=== PATIENT | female | born 1985 | race Caucasian/White ===

== ENCOUNTER → 2019-08-25 13:14 | Outpatient (CLI) | payer OTHER, SELFPAY ==
--- NOTE | 2019-08-25 | DI.MRI.S_ITS ---
PROCEDURE: MR FOOT RT WO/W CON INDICATIONS: Localized swelling, mass and lump, right lower decker TECHNIQUE: Noncontrast coronal T1 spin echo and STIR, sagittal T1 spin echo with fat saturation and STIR, axial T1 spin echo and T2 fast spin echo with fat saturation. After the administration of contrast, axial/sagittal/coronal T1 spin echo with fat saturation through the right foot. COMPARISON: [facility] Outside Film, MR, MR FOOT RIGHT WITHOUT CONTRAST, 06/15/2019, 10:48. FINDINGS: Image quality: Excellent. Bones: The visualized bone marrow demonstrates normal signal on all sequences. The overlying cortex appears intact. No abnormal intraosseous enhancement. Soft tissues: Again noted is subcutaneous soft tissue edema and swelling over dorsum of metatarsal bones particularly on lateral aspect, decreased compared to previous study. After IV contrast infusion, there is mild heterogeneous enhancement in the area of swelling. No definite discrete soft tissue mass or drainable fluid collection is seen. Small amount of fluid within first MTP joint is seen. The scanned muscles demonstrate normal overall bulk and internal signal. Subcutaneous tissues appear normal as well. IMPRESSION: 1. Nonspecific soft tissue swelling and edema involving the dorsal mouth midfoot particularly over third through fifth metatarsal bones. Mild heterogeneous contrast enhancement is noted within subcutaneous soft tissue. No discrete enhancing mass or drainable fluid collection is identified. No underlying muscle or tendon involvement is seen. Extent of swelling has decreased since previous study. 2. There is no marrow edema. No fracture or dislocation. No bony erosive changes or abnormal intraosseous enhancement. Dictated by: Anthony Hager M.D. on 08/25/2019 at 16:09 Approved by: Anthony Hager M.D. on 08/25/2019 at 16:26
== END ==
PROVIDERS: Referring Provider Orthopaedic Surgery Foot and Ankle Surgery; Visit Provider Orthopaedic Surgery Foot and Ankle Surgery
DX: R22.41 Localized swelling, mass and lump, right lower limb (principal)
CPT/HCPCS: 73720

== ENCOUNTER → 2019-11-21 11:22 | Outpatient (CLI) | payer OTHER, SELFPAY ==
[2019-11-22 08:40] LABS: COVID19 Sendout NOT DETECTED (Not Detect)
== END ==
PROVIDERS: Visit Provider Physician Assistant
DX: Z11.59 Encounter for screening for other viral diseases (principal)
CPT/HCPCS: 87635

== ENCOUNTER 2019-11-24 11:02 | Day surgery (SDC) | payer OTHER, SELFPAY ==
[2019-11-23 07:58] VITALS: BMI 41.1
[2019-11-24] VITALS (8 sets, daily range): BP systolic 102–120; BP diastolic 66–85; PULSE 65–77; RESP 12–20; TEMP 36.1–36.9; O2SAT 94–98; BMI 41.1
--- NOTE | 2019-11-24 | PATH_ITS ---
[facility] Accession Number: [id number] . 01 Material submitted: . PART A: foot - RIGHT DORSAL FOOT - PROXIMAL LESION PART B: foot - RIGHT DORSAL FOOT 4TH/5TH INNERSPACE . 01 Diagnosis: A. Right Dorsal Foot, Biopsy: Deep dermal/subcutaneous granulomatous inflammation with areas of palisading. . Note: Diagnostic considerations could include deep granuloma annulare (favor given the presence of mucin, highlighted with colloidal iron stain, in the center of the palisading granulomatous inflammation), a rheumatoid nodule, changes secondary to local trauma, and an infectious process, among others. Special stains for microorganisms (PAS, Gram, AFB) are negative. No malignancy is identified on H/E sections, nor with pancytokeratin immunostain performed. Clinicopathological correlation is advised. . B. Right Dorsal Foot Fourth/Fifth Inner Space, Biopsy: Fibroadipose tissue with focus of granulomatous inflammation (please see comment on part A). [facility] 11/29/2019 1559 Local . 01 Electronically signed: Malu Sherman MD, Dermatopathologist NPI- [id number] . 01 Gross description: . (A) Received in formalin, labeled right distal foot proximal lesion, is a piece of wallace-white firm tissue (1.5 x 0.8 x 0.7 cm) partially covered in wallace-white unremarkable friction-ridged skin (1.4 x 0.3 cm). The resection margin is inked blue. Serially sectioned and entirely submitted in cassettes A1-A2, two slices in each cassette. (B) Received in formalin, labeled right dorsal foot fourth-fifth interspace, is a 1.8 x 1.5 x 0.6 cm piece of wallace-white rubbery tissue. The specimen is inked blue, serially sectioned, and entirely submitted in cassettes B1-B2. ([id number]) /MRV 11/25/2019 1056 Local . 01 Pathologist provided ICD-10: L92.9 . 01 CPT . 752624, 767741, [id number], 764151, 130394, [id number], [id number] Performed at: 01 [facility] [address] [facility], [place], [place] [id number] MD Johnnie Maza MD Phone: [phone]
[2019-11-24] MEDS: LACTATED RINGERS 1,000 ML 42 ML IV (11:17)
--- NOTE | 2019-11-24 11:23 | SUR.PREOP ---
Patient states that she had a reaction to penicillin when she was 16 with her throat swelling. Patient has since taken amoxicillin without difficulty. Notified pharmacy to proceed with [facility]. Dr Saul ramirez.
--- NOTE | 2019-11-24 11:44 | PM.PREOP ---
Pre-operative Note COVID-19 COVID-19 status: Negative Interval Note History & Physical reviewed/Exam performed by Physician: Yes Changes to H&P: No
[2019-11-24] MEDS: CEFAZOLIN 2 GM/100 ML FROZ.PIGGY IV (12:30)
--- NOTE | 2019-11-24 12:48 | SUR.OPER ---
Supine on padded OR bed, head on pillow, arms secured on padded arm boards at <90 degrees abduction, legs uncrossed, safety belt at thigh, tape over blanket to left leg. Right leg in surgeon control.
[2019-11-24] MEDS: BUPIVACAINE 0.25% W/ EPI 30 ML VIAL INJ (13:24)
--- NOTE | 2019-11-24 13:26 | PM.OP.1 ---
Operative Date/Time/Diagnoses Date of procedure: 11/24/19 Time of procedure: 12:40 Pre-op diagnosis: Mass right foot r22.41 Post-op diagnosis: same Procedure & Clinicians Procedure: Open incisional biopsy skin and deep tissue right foot x2 Same procedure as scheduled: Yes Indications: Patient is a 34-year-old female history of painful masses on the dorsum of her right foot greater than 6 months. She has palpable tender masses over the dorsum of the foot in several areas including over the dorsal lateral midfoot and dorsum over the 1st metatarsophalangeal joint and 4th 5th metatarsal interspace. Nonspecific changes were demonstrated on MRI with and without contrast. Edema within the subcutaneous tissues. Patient has been indicated for open incisional biopsy. She has multiple areas of tenderness and nodularity. We discussed biopsying the 2 most prominent painful areas which are the dorsal lateral midfoot lesion and the fourth-fifth metatarsal interspace. The risks and benefits of the procedure have been discussed with the patient even opportunity to ask questions. The risks of surgery include but are not limited to infection, persistence of pain, damage to nerves and blood vessels, need for additional procedures, DVT, PE, cardiopulmonary complications and . The patient expressed a thorough understanding of the risks and benefits of surgery and has elected to proceed. Consent was signed in the office. Surgeon: America Hughes Click Yes if Unassisted: Yes Anesthesia Type: General and Local Operative Notes Findings: Two ill-defined masses were incised and sent for allergy and culture. Proximal a biopsy was sent with a small ellipse of overlying and normal skin. Massive both appeared to consist of thickened subcutaneous tissues and fat and were formed in close proximity to venous structures. Both ended superficial to the extensor tendons with no defined lesion or capsule. Again thickened tissue was excised and sent for pathology and culture. There is no evidence of purulence. Closure Type: primary Specimen(s): other (Specimen for pathology and culture) Estimated Blood Loss (mL): 1 Blood products transfused: none Tourniquet time (min): 18 Procedure in detail: Patient was seen in the preoperative area and the surgical site was marked and informed consent confirmed. The patient was then brought back to the operating room by the anesthesia team positioned supine on the operative table. Anesthetic was administered by the anesthesia team once the appropriate level of anesthesia was obtained patient was position. A small bump was placed under the right thigh. The right lower extremity was prepped and draped in the standard sterile fashion. A nonsterile and goal tourniquet was placed. An SCD was on the contralateral lower extremity. A formal time-out was completed confirming the patient's side and site of surgery administration of appropriate preoperative antibiotics. All were in agreement. Esmarch was used for exsanguination and tourniquet was raised to 250 mm of mercury and stayed there for 18 minutes. Two separate longitudinal and extensile style incisions were drawn over the mass is there is a palpable dorsal lateral mass of approximately a 2 x 1 cm and less distinct but deeper nodularity palpated distal at the 4th 5th metatarsal interspace just proximal to the MTPs. For the proximal incision a small ellipse of normal skin was also taken for the specimen. This taken down through the skin subcutaneous tissues careful hemostasis was maintained. Within the subcutaneous is tissue was thickening but ill-defined mass with no evidence of capsule. This was a defined using the knife and tenotomy scissors and traced down to the extensor retinaculum. There was a prominent vein running within the area of thickened tissue. This was carefully cauterized at each end and excised with the mass. The mass was then excised and was superficial to the extensor tendons. There is no evidence of purulence or tendon involvement. This was excised as specimen 1 the proximal right dorsal foot specimen. Next attention was turned distally to the fourth-fifth interspace again a longitudinal incision was made down through the skin. Careful dissection taken through the subcutaneous tissues in the defined firm a subcutaneous tissues and fat and again using tenotomy scissors the area of thickened subcutaneous tissue and fat was excised. Again there was a prominent vein with within this tissue and again this was cauterized and excised with the mass.. The specimen was divided in to 2 sections 1 sent for culture with the other was sent as pathology specimen 2. Dorsal foot fourth-fifth interspace. Again there did not appear to be any involvement of the extensor tendons and the thickened area of tissue was superficial to the extensor tendons which was consistent with the preoperative imaging. At this point hemostasis was achieved tourniquet was released the wounds were irrigated and closed in a layered fashion with 4 0 Monocryl and 4 0 nylon. Small amount of 7 cc of 0.25% Marcaine with epinephrine was injected for local anesthetic a compressive dressing with Xeroform gauze Kerlix and Enzo wrap was placed. Patient was woken from anesthesia and taken to the recovery room in good condition. There no immediate complications from this procedure. Complications: none Post-operative Condition: stable Disposition: PACU Plan for aftercare: Weightbear as tolerated in postop shoe. Keep incisions clean dry and intact. Follow-up in 2 weeks for suture removal. Follow up on pathology. Suspect inflammatory/panniculitis nature but await pathology
[2019-11-24] MEDS: HYDROCODONE/ACET 5/325 TABLET 1 TAB PO (13:41)
== END 2019-11-24 14:10 | disposition home or self-care (01) ==
PROVIDERS: Referring Provider Orthopaedic Surgery Foot and Ankle Surgery; Visit Provider Orthopaedic Surgery Foot and Ankle Surgery
PROC: (CPT 11106; principal; 2019-11-24 11:45)
DX: L92.9 Granulomatous disorder of the skin and subcutaneous tissue, unspecified (principal)
CPT/HCPCS: 11106; 11107; 87070; 87075; 87102; 87116; 87205; 87206; J0690; J2250; J2405; J2704; J3010

== ENCOUNTER 2019-11-27 23:50 | Emergency (ER) | payer OTHER, SELFPAY ==
--- NOTE | 2019-11-27 23:57 | ED_ITS ---
HPI - Extremity Problem General Chief complaint: Extremity Problem,Nontraumatic Stated complaint: numbness in foot/had surgery 11/23 Time Seen by Provider: 11/27/19 23:57 History of Present Illness HPI Narrative: 34-year-old woman who is day 3 postop right foot open incisional biopsy x2. It had been healing well with minimal pain until this evening when she began noticing some paresthesia developing over the lateral aspect of the distal foot and the small toe progressing to the 4th toe than the lateral half of the 3rd toe. She is having no difficulty walking no difficulty with flexion. Able to move all toes no increased pain, no calf swelling no weakness in the foot or leg and no other systemic neurologic complaints. Related Data Home Medications Medication Instructions Recorded Confirmed naproxen sodium 220 mg PO Q8H PRN 11/24/19 11/24/19 oxybutynin chloride 5 mg PO DAILY 11/24/19 11/24/19 sertraline 50 mg PO DAILY 11/24/19 11/24/19 Previous Rx's Medication Instructions Recorded hydrocodone-acetaminophen [Hollsopple] 1 tab PO Q6H PRN #10 tab 11/24/19 Allergies Allergy/AdvReac Type Severity Reaction Status Date / Time Penicillins Allergy Severe Swelling Verified 11/24/19 10:54 of Lip/Tongue/Throat Review of Systems Review of Systems Narrative: Pertinent positive and negative findings as per HPI Remainder of review of systems is otherwise unremarkable for Constitutional: Fevers, chills, weakness ENT: No sore throat, neck pain, ear pain CV: Chest pain, palpitations, dyspnea on exertion Respiratory: Cough, wheeze, dyspnea GI: Nausea, vomiting, diarrhea, change in bowel habits, black or bloody stools : Dysuria, hematuria, flank pain MS: Muscle weakness, numbness, joint swelling or warmth Neuro: Syncope, dizziness, tingling Psych: Depression, anxiety, suicidal ideation Patient History Medical History Depression (Inactive) Social History household members: spouse Smoking Status: Smoker, status unknown Smoking Status: Smoker, status unknown alcohol intake frequency: holidays/special occasions only Substance Use Type: does not use Exam Narrative Exam Narrative: General: Alert appropriate in no acute distress Respiratory: Able to speak in full sentences, no obvious respiratory distress Skin: No obvious rashes, warm and dry Neurologic: Grossly intact no obvious asymmetries or abnormalities Psych, appropriate insight and affect, cooperative Extremity: Surgical dressing is removed from the right foot. Does not appear to be overly constrictive. She has full range of motion nontender at the right ankle. Good capillary refill the tips of all 5 toes. Palpable dorsalis pedis and posterior tibialis pulses the surgical wounds are healing nicely with no redness or discharge. There is no skin breakdown on the plantar surface of the foot or to the tips of the toes. She has full nonpainful movement of all 5 toes. There is no right inguinal adenopathy and no significant right calf edema or tenderness. Muscles of the foot and calf are not tense or tender to palpation. Initial Vital Signs Initial Vital Signs: Vital Signs Temperature 97 F L 11/27/19 23:58 Pulse Rate 89 11/27/19 23:58 Respiratory Rate 17 11/27/19 23:58 Blood Pressure 121/78 11/27/19 23:58 Pulse Oximetry 97 11/27/19 23:58 Course Orders Ordered: Discontinued Medications Bacitracin (Bacitracin) 1 applic TOP NOW ONE Stop: 11/28/19 00:10 Last Admin: 11/28/19 00:14 Dose: 1 applic Documented by: Bacitracin (Bacitracin) 1 applic TOP NOW ONE Stop: 11/28/19 00:10 Last Admin: 11/28/19 00:14 Dose: 1 applic Documented by: Vital Signs Vital signs: Vital Signs - 8 hr 11/27/19 23:58 Temperature 97 F L Pulse Rate 89 Respiratory Rate 17 Blood Pressure 121/78 Pulse Oximetry 97 MDM - Extremity (Nontraumatic) MDM Narrative Medical decision making narrative: Developing paresthesias to the 3rd 4th and 5th toes in the lateral aspect of her distal foot after biopsy of 2 masses on the dorsum of her foot. No evidence of vascular occlusion compartment syndrome, infection or excessively restrictive dressing. Patient is reassured. Looser dressing is applied and encouraged her to follow-up with orthopedic surgeon if symptoms are not improving Discharge Plan Departure Patient Disposition: Home Clinical Impression: Paresthesia Activity Restrictions/Additional Instructions: Thank you for coming in today The numbness that you are experiencing on the edge of your foot and the last 3 toes likely is related to your surgery and likely will completely resolve. On your exam today there is no evidence of any infection, blood clots, compartment syndrome, nerve entrapment, excessive swelling, wound breakdown or vascular compromise. I suspect the simply needs a bit more time. We have removed the surgical dressing which was not particularly tight or constrictive when it was removed. We placed a nonocclusive dressing and I will ask you to keep the dressing clean and dry. If it does become soiled, please replace replace antibacterial ointment such as Neosporin on the wounds. If you are having continued numbness or it seems to be getting worse, please call Dr. Borrero on Friday. If you find that there is more pain, redness, drainage if you are having your entire foot going numb and it seems to be moving up your calf this would be very unexpected and very appropriate to re-evaluate in the emergency department. I hope you feel better. Prescriptions: No Action oxybutynin chloride 5 mg Tablet Extended Release 24hr 5 mg PO DAILY RF: 0 sertraline 50 mg Tablet 50 mg PO DAILY RF: 0 naproxen sodium 220 mg Capsule 220 mg PO Q8H PRN (Reason: Pain (Scale Score 1-3)) RF: 0 hydrocodone-acetaminophen [Hollsopple] 5-325 mg tablet 1 tab PO Q6H PRN (Reason: pain) Qty: 10 RF: 0
[2019-11-27 23:58] VITALS: BP 121/78; PULSE 89; RESP 17; TEMP 36.1; O2SAT 97; BMI 41.1
[2019-11-28] MEDS: BACITRACIN OINT 0.9 GM PCKT 1 APPLIC TOP ×2 (00:14)
[2019-11-28 00:23] VITALS: BP 112/77; PULSE 85; RESP 16; O2SAT 96
--- NOTE | 2019-11-28 00:25 | PC.NURSE ---
reports beginning at 9pm alexisight s/p foot surgery numbness in third through fifth toe and half way up the lateral side of foot. Denies other symptoms.
--- NOTE | 2019-11-28 00:26 | PC.NURSE ---
Cap refill <2 seconds on all five toes of right foot prior to unwrapping bandages. No sigs of infection noted in either approximately 3cm incisions. Edges very well approximated and sutures in tact. Re bandaged with bacitracin, no stick pads and coban by Dr Huang at bedside. Cap refill <2 seconds after rebandaging.
== END 2019-11-28 00:35 | disposition home or self-care (01) ==
PROVIDERS: Emergency Provider Emergency Medicine
DX: Z98.890 Other specified postprocedural states (principal); R20.2 Paresthesia of skin
CPT/HCPCS: 99282